=== PATIENT | female | born 1995 | race Caucasian/White ===

== ENCOUNTER 2018-06-08 10:23 | Emergency (ER) | payer SELFPAY ==
[~2018-06-08] VITALS: Ht 152.4 cm; Wt 63.7 kg
[2018-06-08 14:36] VITALS: BP 118/64
== END 2018-06-08 14:36 | disposition home or self-care (01) ==
LOC: ED 10:23
DX: S16.1XXA Strain of muscle, fascia and tendon at neck level, initial encounter (principal); V49.9XXA Car occupant (driver) (passenger) injured in unspecified traffic accident, initial encounter; Y93.I9 Activity, other involving external motion; Y92.488 Other paved roadways as the place of occurrence of the external cause; Y99.8 Other external cause status

== ENCOUNTER 2019-05-06 20:29 | Emergency (ER) | payer BC ==
[~2019-05-06] VITALS: Ht 152.4 cm; Wt 50.4 kg
[2019-05-06 20:34] VITALS: Ht 152.4 cm; Wt 50.4 kg
[2019-05-06 22:34] VITALS: BP 116/72
== END 2019-05-06 22:34 | disposition home or self-care (01) ==
LOC: ED 20:29
DX: S61.012A Laceration without foreign body of left thumb without damage to nail, initial encounter (principal); W26.8XXA Contact with other sharp object(s), not elsewhere classified, initial encounter; Y93.89 Activity, other specified; Y92.89 Other specified places as the place of occurrence of the external cause; Y99.8 Other external cause status
CPT/HCPCS: 90715; J2001

== ENCOUNTER 2019-05-08 19:57 | Emergency (ER) | payer BC ==
[~2019-05-08] VITALS: Ht 152.4 cm; Wt 49.9 kg
[2019-05-08 20:29] VITALS: Ht 152.4 cm; Wt 49.9 kg
[2019-05-08 21:07] VITALS: BP 132/82
== END 2019-05-08 21:07 | disposition home or self-care (01) ==
LOC: ED 19:57
DX: S61.012D Laceration without foreign body of left thumb without damage to nail, subsequent encounter (principal); X58.XXXD Exposure to other specified factors, subsequent encounter

== ENCOUNTER 2019-05-16 18:59 | Emergency (ER) | payer BC ==
[~2019-05-16] VITALS: Ht 152.4 cm; Wt 50.8 kg
[2019-05-16 19:04] VITALS: Ht 152.4 cm; Wt 50.8 kg
[2019-05-16 19:49] VITALS: BP 126/83
== END 2019-05-16 19:49 | disposition home or self-care (01) ==
LOC: ED 18:59
DX: S61.012D Laceration without foreign body of left thumb without damage to nail, subsequent encounter (principal); X58.XXXD Exposure to other specified factors, subsequent encounter